=== PATIENT | female | born 1995 | race Caucasian/White ===

== ENCOUNTER 2018-04-03 12:57 | Day surgery (SDC) | payer BC ==
[2018-04-03] MEDS ORDERED: LIDOCAINE 4% SOLUTION 50 ML BTL (14:59)
== END 2018-04-03 15:16 | disposition home or self-care (01) ==
LOC: GIL 12:57
DX: K29.30 Chronic superficial gastritis without bleeding (principal)
CPT/HCPCS: 43239; 84703; 88305; 88312